=== PATIENT | female | born 2000 | race American Indian/Alaskan Native ===

== ENCOUNTER 2022-11-24 21:59 | Emergency (ER) | payer OTHER, SELFPAY ==
[2022-11-24 22:08] VITALS: BP 106/62; PULSE 62; RESP 16; TEMP 36; O2SAT 100
[2022-11-24] MEDS: KETOROLAC 15 MG/ML inj IVP (22:35)
[2022-11-24] MEDS: ONDANSETRON 2 MG/ML inj 4 MG IVP (22:35)
[2022-11-24] MEDS: 0.9 % SODIUM CHLORIDE 1000 ml 1,000 ML IV (22:35)
[2022-11-24 23:27] LABS: PCR FLU A Negative PCR FLU A (Negative); PCR FLU B Negative PCR FLU B (Negative)
[2022-11-24 23:30] LABS: SARS PCR* Negative SARS-CoV-2 (Negative)
[2022-11-24 23:39] VITALS: BP 109/59; PULSE 62; RESP 62; O2SAT 100
--- NOTE | 2022-11-24 23:44 | ED_ITS ---
HPI - Nausea/Vomiting/Diarrhea General Chief complaint: Nausea/Vomiting Stated complaint: Headaches, Nausea Time Seen by Provider: 11/24/22 22:16 History of Present Illness HPI Narrative: 21-year-old young woman presenting here with friend started having nausea vomiting and diarrhea about 5 hours prior to arrival. This started sometime after gross lab. Not had any fever. No hematochezia no hematemesis is described. No particular exposures. Some months back did have period of time where is seemed to be having regular morning nausea and vomiting. She did have what sounded like dissolvable Zofran around that time and is now out of that. Today then also started to have a throbbing feeling in her right head, headache. Does have a history of headaches. Related Data Allergies Allergy/AdvReac Type Severity Reaction Status Date / Time No Known Drug Allergies Allergy Verified 11/24/22 22:08 Review of Systems Status of ROS: Reports: 6 or more systems reviewed and unremarkable except as noted in History and below PFSH PFSH Social History Smoking Status: Never smoker Do you use any of these nicotine containing products: None Second hand tobacco smoke exposure: No How often do you have a drink containing alcohol: never How often do you have six or more drinks on one occasion: Never AUDIT-C Alcohol total score: 0 Non-prescribed substance use: denies use service: No Exam Narrative: Exam Narrative: Pleasant. Emesis bag near by. Here with friend. Of good energy. Skin is warm and dry. Mouth is a little sticky. Moving all extremities without difficulty. Cranial nerves 2-12 appear to be intact. Lungs are clear abdomen is soft and nontender. Normoactive bowel sounds. Const: Vital Signs, click to edit/add: Vital Signs - 24 hr 11/24/22 22:08 11/24/22 23:39 Temperature 96.8 F L Pulse Rate [Left P ulse Oximeter] 62 62 Respiratory Rate 16 62 H Blood Pressure [Ri ght Upper Arm] 106/62 109/59 L Pulse Oximetry 100 100 Oxygen Delivery Me thod Room Air Room Air Documenting provider has reviewed patient's vital signs: yes Course Vital Signs Vital signs: Initial Vital Signs Temperature 96.8 F L 11/24/22 22:08 Temperature Source Temporal Artery Scan 11/24/22 22:08 Pulse Rate 62 11/24/22 22:08 Pulse Rhythm 11/24/22 22:08 Respiratory Rate 16 11/24/22 22:08 Blood Pressure 106/62 11/24/22 22:08 Blood Pressure Mean 76 11/24/22 22:08 Blood Pressure Position Semi-Fowlers 11/24/22 22:08 Pulse Oximetry 100 11/24/22 22:08 Oxygen Delivery Method 11/24/22 22:08 Vital Signs Temperature 96.8 F L 11/24/22 22:08 Pulse Rate 62 11/24/22 22:08 Respiratory Rate 16 11/24/22 22:08 Blood Pressure 106/62 11/24/22 22:08 Pulse Oximetry 100 11/24/22 22:08 Oxygen Delivery Method 11/24/22 22:08 Temperature 96.8 F L 11/24/22 22:08 Pulse Rate 62 11/24/22 23:39 Respiratory Rate 62 H 11/24/22 23:39 Blood Pressure 109/59 L 11/24/22 23:39 Pulse Oximetry 100 11/24/22 23:39 Oxygen Delivery Method 11/24/22 23:39 MDM - Nausea/Vomiting/Diarrhea MDM Narrative Medical decision making narrative: She did feel she could use some IV fluids. It sounds like gastroenteritis that has been present in the community. Vomiting and possible dehydration exacerbating or creating headache in somebody prone this. Given IV fluids, Zofran, ketorolac. On reassessment is significantly improved. She also tolerated oral intake. See patient discharge information Lab Data Attestation: I reviewed the patient's lab results. Labs: Lab Results 11/24/22 Range/Units 22:30 SARS-CoV-2 (PCR) Negative SARS-CoV-2 (Negative) Influenza Type A (PCR) Negative PCR FLU A (Negative) Influenza Type B (PCR) Negative PCR FLU B (Negative) Discharge Plan Discharge Clinical Impression: Gastroenteritis, Dehydration, Headache Patient Disposition: Home, Self-Care Condition: Improved Instructions: Gastroenteritis (ED) Additional Instructions: Continue to focus on hydration over the next 24-36 hours. I would normally suggest diluted juices, soup broths advancing to thicker soups and maybe smoothies. Rice. [place]. Crackers. Return for intractable vomiting, intractable diarrhea, marked increase in pain. Hopefully you don't associate all this with gross lab. :) Zofran from [facility]. Follow Up/Referrals: Provider,Not a Local [Primary Care Provider] - Stand Alone Forms: MyHealth Info Instructions
--- NOTE | 2022-11-24 23:45 | ED.NURSE ---
Tolerated crackers and water.
== END 2022-11-24 23:45 | disposition home or self-care (01) ==
PROVIDERS: Emergency Provider Family Medicine
DX: K52.9 Noninfective gastroenteritis and colitis, unspecified (principal); R51.9 Headache, unspecified
CPT/HCPCS: 87631; 96374; 96375; 99283; 99284; J1885; J2405; J7030